=== PATIENT | male | born 1975 | race Caucasian/White ===

== ENCOUNTER → 2023-09-05 | Day surgery (SDC) | payer MEDICARE | END | disposition home or self-care (01) | LOC: EDSTATUS 09:25 → MSO 09:28 | DX: Z12.11 Encounter for screening for malignant neoplasm of colon (principal); K57.30 Diverticulosis of large intestine without perforation or abscess without bleeding; F17.290 Nicotine dependence, other tobacco product, uncomplicated; Z87.19 Personal history of other diseases of the digestive system | CPT/HCPCS: G0121; 00812; J2704; J7120 ==

== ENCOUNTER 2024-03-26 18:09 | Emergency (ER) | payer OTHER, MEDICARE ==
[2024-03-26] MEDS ORDERED: SINGULAIR 110 MG/TAB PO (18:17)
[2024-03-26] MEDS ORDERED: QUETIAPINE FUM100 M1 PO (18:17)
[2024-03-26] MEDS ORDERED: LOSARTAN POTASS1 TA2 PO (18:17)
[2024-03-26] MEDS ORDERED: OMEPRAZOLE40 MG PO (18:17)
[2024-03-26] MEDS ORDERED: MELOXICAM15 MG PO (18:17)
[2024-03-26] MEDS ORDERED: VENLAFAXINE HCL75 M3 PO (18:17)
[2024-03-26] MEDS ORDERED: LOPRESSOR 550 MG/TAB PO (18:17)
[2024-03-26 18:54] VITALS: BP 138/87
== END 2024-03-26 18:54 | disposition home or self-care (01) ==
LOC: ED 18:09
DX: S61.211A Laceration without foreign body of left index finger without damage to nail, initial encounter (principal); Z23 Encounter for immunization; W26.8XXA Contact with other sharp object(s), not elsewhere classified, initial encounter; Y92.89 Other specified places as the place of occurrence of the external cause; Y99.0 Civilian activity done for income or pay
CPT/HCPCS: 90715

== ENCOUNTER 2024-05-09 14:45 | Emergency (ER) | payer MEDICARE ==
[~2024-05-09] VITALS: Ht 180.3 cm; Wt 105.9 kg
[~2024-05-09 14:45] MED LIST: LOPRESSOR 550 MG/TAB PO; LOSARTAN POTASS1 TA2 PO; MELOXICAM15 MG PO; OMEPRAZOLE40 MG PO; QUETIAPINE FUM100 M1 PO; SINGULAIR 110 MG/TAB PO; VENLAFAXINE HCL75 M3 PO
[2024-05-09 15:39] LABS: BASO # 0.02 K/mm3 (0.02-0.10); EOS # 0.11 K/mm3 (0.04-0.40); EOS % 1.7 % (0.0-4.0); HEMATOCRIT 42.8 % (42.0-52.0); HEMOGLOBIN 15.2 g/dL (13.5-18.0); LYMPH# 1.88 K/mm3 (1.50-4.00); MEAN CELL VOLUME 86 fl (78-100); MEAN CORPUSCULAR HEMOGLOBIN 31 pg (27-31); MEAN CORPUSCULAR HGB CONC 36 g/dL (33-37); MEAN PLATELET VOLUME 9.8 fl (7.4-10.4); PLATELET COUNT 264 K/mm3 (130-400); RED BLOOD COUNT 4.97 M/mm3 (4.20-5.60); RED CELL DISTRIBUTION WIDTH 12.4 % (11.5-14.5); WHITE BLOOD COUNT 6.3 K/mm3 (4.8-10.8)
[2024-05-09 15:43] LABS: ALBUMIN 4.7 g/dL (3.5-5.0); SODIUM 137 mmol/L (136-145)
[2024-05-09 15:44] LABS: CALCIUM 9.3 mg/dL (8.3-10.5)
[2024-05-09 15:45] LABS: GLUCOSE 93 mg/dL (75-110); TOTAL PROTEIN 7.3 g/dL (6.4-8.3)
[2024-05-09 15:46] LABS: CARBON DIOXIDE 22 mmol/L (22-29)
[2024-05-09 15:47] LABS: TOTAL BILIRUBIN 0.9 mg/dL (0.2-1.2)
[2024-05-09 15:50] LABS: AST-SGOT 18 U/L (5-34)
[2024-05-09 15:52] LABS: ALCOHOL IN-HOUSE < 10 mg/dL (<10); ALT/SGPT 20 U/L (0-55)
[2024-05-09 15:54] LABS: ACETAMINOPHEN < 1 ug/mL
[2024-05-09 16:45] VITALS: BP 139/88
[2024-05-09 16:46] VITALS: BP 139/88
[2024-05-09 17:26] LABS: PH-URINE 6.5 (5.0 - 8.0); URINE APPEARANCE CLEAR (CLEAR); URINE BILIRUBIN NEGATIVE (NEGATIVE); URINE BLOOD NEGATIVE (NEGATIVE); URINE COLOR YELLOW (YELLOW); URINE GLUCOSE NEGATIVE (NEGATIVE); URINE KETONE 1+ (NEGATIVE); URINE LEUKOCYTE ESTERASE NEGATIVE (NEGATIVE); URINE NITRATE NEGATIVE (NEGATIVE); URINE PROTEIN(semi-quant) NEGATIVE (NEGATIVE)
[2024-05-09 17:35] LABS: URINE MUCUS PRESENT (NOT PRESENT)
[2024-05-09 18:00] VITALS: BP 129/78
[2024-05-09 19:51] VITALS: BP 144/89
[2024-05-09 20:00] VITALS: BP 144/89
== END 2024-05-09 20:03 ==
LOC: ED 14:45
PROVIDERS: Family Medicine
DX: R45.851 Suicidal ideations (principal)